=== PATIENT | male | born 1955 | race Caucasian/White ===

== ENCOUNTER 2016-11-01 13:43 | Observation (INO) | payer MEDICAID ==
[2016-11-01] MEDS ORDERED: ASPIRIN 81 MG TAB.CHEW PO ONE (14:00)
[2016-11-01] MEDS ORDERED: NITROGLYCERIN 0.4 MG/TAB BTL SL PRN (14:00)
[2016-11-01 14:12] LABS: Hematocrit 42.1 % (42.0-52.0); Mean Cell Volume 89.2 fl (78-100); Mean Corpuscular Hemoglobin 31.8 pg (27-31); Mean Corpuscular Hgb Conc 35.6 g/dl (32-36); Mean Platelet Volume 9.6 fl (6.0-9.5); Neutrophil % 57.1 % (42-75.0); Platelet Count 167 K/mm3 (150-450); Red Blood Count 4.72 M/mm3 (4.7-6.0); Red Cell Distribution Width 13.3 % (11.5-14.0); White Blood Count 5.3 K/mm3 (4.0-10.5)
[2016-11-01 14:24] LABS: Prothrombin Time (Patient) 10.9 Seconds (9.4-11.4)
[2016-11-01] MEDS ORDERED: ASPIRIN 81 MG TAB.CHEW ONE (14:28)
[2016-11-01 14:30] LABS: ALT 29 U/L (19-67); AST 24 U/L (0-48); Albumin * 4.1 gm/dl (3.4-5.0); Alkaline Phosphatase * 86 U/L (50-170); Anion Gap 13.2 mmol/L (6.8-13.8); Bilirubin, Total 0.7 mg/dL (0.0-1.1); Blood Urea Nitrogen 23 mg/dL (6-23); Ca. Corrected For Albumin 8.6 mg/dL (8.4-10.2); Carbon Dioxide 26.9 mmol/L (24-32.6); Chloride 104 mmol/L (97-106); Glucose * 109 mg/dL (70-110); INR 1.05 INR (0.90-1.10); Partial Thrombolplastin Time 28.7 Seconds (24-32); Potassium 4.1 mmol/L (3.4-4.6); Sodium 140 mmol/L (132-142); Total Protein 8.2 gm/dL (6.2-8.2)
[2016-11-01 14:31] LABS: Troponin I Less than 0.017 ng/ml (0.00-0.10)
--- NOTE | 2016-11-01 15:17 | ERNOTE ---
Chest Pain/Cardiac HPI Date of Service: 11/01/16 Chief Complaint: Chest Pain Time Seen by Provider: 11/01/16 14:06 Source: patient, RN notes reviewed Exam Limitations: no limitations Immunizations: IMMUNIZATION HX Immunizations Up to Date Yes History of Influenza Vaccine Yes Hx Pneumococcal Vaccination No Allergies/Adverse Reactions: Allergies Penicillins Allergy (Severe, Verified 11/01/16 13:55) Anaphylaxis Home Medications: HOME MEDICATIONS Lisinopril [Prinivil] 10 mg PO DAILY #30 tablet 08/02/16 [Last Taken Unknown] risperiDONE [Risperdal] 2 mg PO BID 11/01/16 [Last Taken Unknown] Pain Score #1 Pain Score: 2 Narrative: 61 year old male presents to the ED with left sided chest pain that began this morning. He had chest pain yesterday that began during jainism. It resolved without intervention after about 90 minutes. His pain was initially severe today , but he pounded on his chest and the pain lessened. He also reports tingling in his left arm and profuse sweating off and on throughout the day today. Timing: constant Severity/Quality: mild, pressure Location: left chest Chest Pain Radiation: no radiation Activities at Onset: rest Nitro Today/Relief: no nitro taken today Aspirin Treatment Today: no aspirin today Associated Symptoms: Present: cough, diaphoresis. Absent: dizziness, syncope, shortness of breath, nausea, vomiting, abdominal pain, swelling/lump in chest Prior Chest Pain/Cardiac Workup: Reports: no prior cardiac workup. Denies: heart attack Prior Treatment: Denies: recently seen Review of Systems - Review of Systems Constitutional: Present: fatigue. Absent: recent illness, fever, chills EYE: Present: no symptoms reported ENT: Present: no symptoms reported Respiratory: Absent: shortness of breath, cough Cardiology: Present: chest pain. Absent: palpitations, syncope, edema Gastrointestinal/Abdominal: Absent: nausea, vomiting, abdominal pain Genitourinary: Present: no symptoms reported Musculoskeletal: Absent: back pain, muscle pain, neck pain Skin: Absent: rash, lesions, lumps Neurological: Absent: headache, dizziness/light-headedness Endocrine: Present: no symptoms reported Hematologic/Lymphatic: Present: no symptoms reported Psych: Absent: anxiety, depressed - Patient's Past Medical History Patient History - Medical: Headache Patient History - Cardiac/Respiratory: Hypertension Patient History - Cancer: No Hx of Cancer Patient History - Surgical Procedures: Hernia Repair Patient History - Other: None - Social History Living Situations: home Abuse History: No History of abuse Psych History: No pertinent hx Smoking Status: Never smoker Alcohol Use: occasionally Drug Use: none - Immunizations Immunizations Up to Date: Yes Hx Pneumococcal Vaccination: No History of Influenza Vaccine: Yes Physical Exam - Physical Exam General Appearance: Present: wd/wn, alert, no apparent distress, anxious Head Exam: Present: normal inspection Eye Exam: Normal inspection: bilateral Ears, Nose, Throat: Present: normal ENT inspection Neck: Present: normal inspection, nontender, supple Respiratory: Present: no respiratory distress, normal breath sounds, no accessory muscle use, chest nontender, lungs clear Cardiovascular/Chest: Present: regular rate, rhythm, normal peripheral pulses, systolic murmur Extremity Exam: Present: normal inspection, normal range of motion, no edema Neurological Exam: Present: alert, oriented, normal mood/affect, no motor/ sensory deficits Skin Exam: Present: normal color, warm/dry ED Progress - Results and Orders Patient's Lab Results:: I have reviewed the patient's lab results. - Vital Signs Patient's Vital Signs:: I have reviewed the patient's vital signs. Vital Signs: Vital Signs 11/01/16 11/01/16 11/01/16 13:46 14:29 14:55 Temperature 36.1 C L Pulse Rate 85 96 79 Respiratory 12 14 11 L Rate Blood Pressure 137/78 129/80 104/73 O2 Sat by Pulse 95 97 97 Oximetry - EKG EKG: NSR EKG read: Reviewed by me - X-Ray X-Ray #1 X-Ray: chest Interpretation: Reviewed by me X-ray Comments: No acute cardiopulmonary process noted - Progress/Reassessment Chief Complaint: Chest Pain Progress:: Improved Plan - Plan Plan: Chest pain relieved with 1 nitro, Lab and EKG unremarkable, Dr. Pisano contacted , to admit patient to observation to r/o [place] Departure - Departure Clinical Impression: Chest pain, rule out acute myocardial infarction Disposition: [facility] Condition: Stable
[2016-11-01] MEDS ORDERED: risperiDONE 1 MG TABLET PO SCH (21:30)
--- NOTE | 2016-11-01 21:35 | HP ---
Chief Complaint - Chief Complaint Date of Service: 11/01/16 Time of Service: 21:10 Chief Complaint: chest pain History of Present Illness: 61 years old male adm to the hospital with report of chest pain. pt of Dr. Pisano [facility] significant for hypertension, bipolar and schizo. pt stated while at mosque yesterday he felt a sharp punch on his chest. Associated s/s shortness of breath, diaphoresis, lethargic and tingling to left arm. He denies dizziness , headaches, palpitation, nausea or vomiting. He went home stayed in bed and the pain lasted approximately 90 minutes and self resolved. This morning while on his computer he had similar episode with same associated s/s, this time the pain was more intense. pt stated he was concerned and came to the ER. In ER he had aspirin and nitro tab and pain resolved. EKG unremarkable, troponins x2 negative.Plan of care discussed with pt he verbalized understanding and agrees. - Patient's Past Medical History Patient History - Medical: Bipolar, Headache Patient History - Cardiac/Respiratory: Hypertension Patient History - Cancer: No Hx of Cancer Patient History - Surgical Procedures: Other - left shoulder surgery, Hernia Repair Patient History - Other: None - Family History Mother Family History - Medical: , Diabetes Type 2, Depression Family History - Cardiac/Respiratory: History Unknown Family History - Cancer: History Unknown Father Family History - Medical: , Rheumatoid Arthritis Family History - Cardiac/Respiratory: CHF, Myocardial Infarction Family History - Cancer: No pertinent family hx - Social History Living Situations: other Abuse History: No History of abuse Psych History: Hx of Schizophrenia Smoking Status: Former smoker Have you smoked in the past 12 months: No Do you dip or chew tobacco: No Patient requests Smoking Cessation Consult: No Initiate information on Smoking Cessation: No Alcohol Use: occasionally Drug Use: none - Immunizations Immunizations Up to Date: Yes Hx Pneumococcal Vaccination: No History of Influenza Vaccine: Yes Review Of Systems (GEN) - Review of Systems Generalized/Overall Review: Present: No Symptoms Reported EENTM: Present: No Symptoms Reported Respiratory: Present: No Symptoms Reported Cardiac: Present: No Symptoms Reported Abdominal: Present: No Symptoms Reported Genitourinary: Present: No Symptoms Reported Musculoskeletal: Present: No Symptoms Reported Neurological: Present: No Symptoms Reported Skin: Present: No Symptoms Reported Endocrine: Present: No Symptoms Reported Immunizations: IMMUNIZATION HX Immunizations Up to Date Yes History of Influenza Vaccine Yes Hx Pneumococcal Vaccination No Allergies/Adverse Reactions: Allergies Allergy/AdvReac Type Severity Reaction Status Date / Time Penicillins Allergy Severe Anaphylaxis Verified 11/01/16 15:44 Home Medications: HOME MEDICATIONS Lisinopril [Prinivil] 10 mg PO DAILY #30 tablet 08/02/16 [Last Taken Unknown] risperiDONE [Risperdal] 2 mg PO BID 11/01/16 [Last Taken Unknown] Exam - Exam Vital Signs: Vital Signs - Last Taken Temp 36.5 C 11/01/16 19:37 Pulse 75 11/01/16 19:37 Resp 20 11/01/16 19:37 BP 123/78 11/01/16 19:37 Pulse Ox 97 11/01/16 19:37 Constitutional: Present: Alert, Oriented x3, Cooperative, Well developed, No distress, Young ENT Exam: Present: hearing grossly normal Eye Exam: bilateral eye: normal inspection Neck: Present: full range of motion Back Exam: Present: normal inspection Breasts: Present: Exam deferred Respiratory: Present: chest non-tender, lungs clear, normal breath sounds, no respiratory distress Cardiovascular/Chest: Present: normal peripheral pulses, regular rate, rhythm, no edema Peripheral Pulses: dorsalis-pedis (R): 3+, dorsalis-pedis (L): 3+ Abdomen: Present: Normal bowel sounds, soft, nontender, nondistended /Rectal: Present: Exam deferred Extremity: Present: normal range of motion, non-tender, normal inspection, no pedal edema Skin Exam: Present: normal color, warm/dry, no cyanosis Lymphatic: Present: no adenopathy Neurologic: Present: oriented x 3 Appearance: Present: appropriate appearance, appropriate insight Eye contact: Present: cooperative, good eye contact Thoughts: Present: normal thought pattern Diagnostic Studies: Laboratory Results WBC 5.3 K/mm3 (4.0-10.5) 11/01/16 14:05 RBC 4.72 M/mm3 (4.7-6.0) 11/01/16 14:05 Hgb 15.0 gm/dL (13.5-18.0) 11/01/16 14:05 Hct 42.1 % (42.0-52.0) 11/01/16 14:05 MCV 89.2 fl (78-100) 11/01/16 14:05 MCH 31.8 pg (27-31) H 11/01/16 14:05 MCHC 35.6 g/dl (32-36) 11/01/16 14:05 RDW 13.3 % (11.5-14.0) 11/01/16 14:05 Plt Count 167 K/mm3 (150-450) 11/01/16 14:05 MPV 9.6 fl (6.0-9.5) H 11/01/16 14:05 Immature Gran % (Auto) 0.40 % (0.001-0.429) 11/01/16 14:05 Immature Gran # (Auto) 0.02 K/mm3 (0.000-0.0310) 11/01/16 14:05 Neutrophils % 57.1 % (42-75.0) 11/01/16 14:05 Lymphocytes % 25.9 % (20-51) 11/01/16 14:05 Monocytes % 11.4 % (0.0-9) H 11/01/16 14:05 Eosinophils % 4.2 % (0.0-3.0) H 11/01/16 14:05 Basophils % 1.0 % (0.0-1.0) 11/01/16 14:05 Nucleated RBC % 0.0 k/mm3 (0-1) 11/01/16 14:05 Neutrophils # 3.0 K/mm3 (1.3-6.0) 11/01/16 14:05 Lymphocytes # 1.4 k/mm3 (1.5-3.5) L 11/01/16 14:05 Monocytes # 0.6 k/mm3 (0.0-1.0) 11/01/16 14:05 Eosinophils # 0.2 k/mm3 (0.0-0.7) 11/01/16 14:05 Absolute Basophils 0.1 k/mm3 (0.0-0.1) 11/01/16 14:05 PT 10.9 Seconds (9.4-11.4) 11/01/16 14:05 INR (Anticoag Therapy) 1.05 INR (0.90-1.10) 11/01/16 14:05 PTT (Grainger) 28.7 Seconds (24-32) 11/01/16 14:05 Sodium 140 mmol/L (132-142) 11/01/16 14:05 Plasma Sodium 140 mmol/L (130-142) 11/01/16 14:05 Potassium 4.1 mmol/L (3.4-4.6) 11/01/16 14:05 Chloride 104 mmol/L (97-106) 11/01/16 14:05 Carbon Dioxide 26.9 mmol/L (24-32.6) 11/01/16 14:05 Anion Gap 13.2 mmol/L (6.8-13.8) 11/01/16 14:05 BUN 23 mg/dL (6-23) D 11/01/16 14:05 Creatinine 1.00 mg/dL (0.4-1.4) 11/01/16 14:05 Est GFR (Non-Af Amer) 81 mL/min (60-130) 11/01/16 14:05 BUN/Creatinine Ratio 23.0 (9.0-21.6) H 11/01/16 14:05 Random Glucose 109 mg/dL (70-110) 11/01/16 14:05 Calcium 9.0 mg/dL (7.9-10.9) 11/01/16 14:05 Calcium Adj for Albumin 8.6 mg/dL (8.4-10.2) 11/01/16 14:05 Total Bilirubin 0.7 mg/dL (0.0-1.1) 11/01/16 14:05 AST 24 U/L (0-48) 11/01/16 14:05 ALT 29 U/L (19-67) 11/01/16 14:05 Alkaline Phosphatase 86 U/L (50-170) 11/01/16 14:05 Troponin I Less than 0.017 ng/ml (0.00-0.10) 11/01/16 20:00 Total Protein 8.2 gm/dL (6.2-8.2) 11/01/16 14:05 Albumin 4.1 gm/dl (3.4-5.0) 11/01/16 14:05 CXR: No acute cardiopulmonary process. Assessment/Plan - Narrative Narrative: Chest pain EKG unremarkable, continue to monitor on telemetry Trop x2 negative Aspirin and nitro tab given in ER and pain totally resolved. Lipid panel and TSH pending Low flow oxygen. Low sodium diet will consider stress test in AM or out pt Hypertension- stable continue with home dose of medications Monitor vital signs Bipolar/ Schizo- stable Pt stated he takes only Risperidone 1mg BID Resume home medication Code status: Full VTEppx: SCD and ambulate GI ppx: pepcid Time 30 minutes - Assessment/Plan (1) Chest pain, rule out acute myocardial infarction Problem: Acute (2) HTN (hypertension) Problem: Chronic Qualifiers: Hypertension type: essential hypertension Qualified Code(s): I10 - Essential (primary) hypertension
[2016-11-01] MEDS: FAMOTIDINE 20 MG TABLET PO SCH (21:54)
[2016-11-02 05:47] LABS: Cholesterol 134 mg/dL (0-200); HDL Cholesterol 33 mg/dL (40-60); LDL Cholesterol 76 mg/dL (70-130); TSH * 5.881 uIU/mL (0.358-3.74); Triglycerides 125 mg/dL (30-200); VLDL Cholesterol 25 mg/dL (5-40)
[2016-11-02 05:53] LABS: Troponin I Less than 0.017 ng/ml (0.00-0.10)
[2016-11-02 06:55] VITALS: BP 105/72
[2016-11-02] MEDS: FAMOTIDINE 20 MG TABLET PO SCH (08:49)
[2016-11-02] MEDS ORDERED: risperiDONE 1 MG TABLET PO SCH (09:00)
[2016-11-02] MEDS ORDERED: LISINOPRIL 10 MG TABLET PO SCH (09:00)
--- NOTE | 2016-11-02 09:51 | DS ---
<Tere Grant - Last Filed: 11/02/16 09:42> (1) Chest pain of unknown etiology Problem: Acute (2) HTN (hypertension) Problem: Chronic QualifierTitle: Hypertension type: essential hypertension Qualified Code( s): I10 - Essential (primary) hypertension Procedures Performed: none Discharge Disposition: Home self care Disposition: Home self-care Condition: Stable Discharge Activity: Activity as tolerated Discharge Diet: Low salt, Low fat/chol Referrals: Serena Pisano DO [Primary Care Provider] - Problem Oriented Discharge Instructions to Patient/Family: Exercise Stress Electrocardiogram, [id number], Nonspecific Chest Pain, [id number], Exercise Stress Electrocardiogram, Care After, [id number], Chest Pain Observation Additional Patient Instructions (free text): be sure to drink enough water, especially when the temperature is warm. activity as tolerated. no changes in your home medications. Outpatient appointment for Echocardiogram is on 11-09-16 @ 9:00am . Outpatient appointment for Nuclear Treadmill Stress Test will be on 11-10-16 @ 7:00am. please wear comfortable cloths and shoes. Follow up with Dr. Pisano in 2-3 weeks, after the echocardiogram and stress test outpatient.,this appointment will be 12-06-16 @ 3:00pm. Complete Home Medications List: Complete Home Medication List: Lisinopril [Prinivil] 10 mg PO DAILY #30 tablet 08/02/16 risperiDONE [Risperdal] 2 mg PO BID 11/01/16 Amb Orders for Discharge: NUC Treadmill Stress Complete Time Frame: 3 Days, Location: Determined By Patient US Echocardiogram Complete * Time Frame: 3 Days, Location: Determined By Patient <Serena Pisano - Last Filed: 11/09/16 15:10> (1) Chest pain of unknown etiology Problem: Acute (2) Chest pain, rule out acute myocardial infarction Problem: Acute (3) HTN (hypertension) Problem: Chronic Qualifiers: Hypertension type: essential hypertension Qualified Code(s): I10 - Essential (primary) hypertension Description of Stay: The patient was admitted to the hospital for chest pain of unknown etiology. During his admission, he was monitored on telemetry and his cardiac enzymes were trended, both of which were unremarkable. The patient will be scheduled for an outpatient treadmill stress test as well as a transthoracic 2-D echocardiogram. Patient will follow-up with me in clinic following completion of these tests to discuss the results. Procedures Performed: none Results and Findings: Laboratory Tests 11/01/16 11/01/16 11/01/16 14:05 14:05 14:05 WBC 5.3 Hgb 15.0 Hct 42.1 MCV 89.2 Plt Count 167 PT 10.9 INR (Anticoag Therapy) 1.05 PTT (Nico) 28.7 Sodium 140 Plasma Sodium 140 Potassium 4.1 Chloride 104 Carbon Dioxide 26.9 Anion Gap 13.2 BUN 23 D Creatinine 1.00 Est GFR (Non-Af Amer) 81 BUN/Creatinine Ratio 23.0 H Random Glucose 109 Calcium 9.0 Calcium Adj for Albumin 8.6 Total Bilirubin 0.7 AST 24 ALT 29 Alkaline Phosphatase 86 Troponin I Less than 0.017 Total Protein 8.2 Albumin 4.1 Triglycerides Cholesterol LDL Cholesterol VLDL Cholesterol HDL Cholesterol Cholesterol/HDL Ratio TSH Free T4 Free T3 11/01/16 11/02/16 11/02/16 20:00 05:10 05:10 WBC Hgb Hct MCV Plt Count PT INR (Anticoag Therapy) PTT (Nico) Sodium Plasma Sodium Potassium Chloride Carbon Dioxide Anion Gap BUN Creatinine Est GFR (Non-Af Amer) BUN/Creatinine Ratio Random Glucose Calcium Calcium Adj for Albumin Total Bilirubin AST ALT Alkaline Phosphatase Troponin I Less than 0.017 Less than 0.017 Total Protein Albumin Triglycerides 125 Cholesterol 134 LDL Cholesterol 76 VLDL Cholesterol 25 HDL Cholesterol 33 L Cholesterol/HDL Ratio 4.0 TSH 5.881 H Free T4 0.96 Free T3 11/02/16 05:10 WBC Hgb Hct MCV Plt Count PT INR (Anticoag Therapy) PTT (Nico) Sodium Plasma Sodium Potassium Chloride Carbon Dioxide Anion Gap BUN Creatinine Est GFR (Non-Af Amer) BUN/Creatinine Ratio Random Glucose Calcium Calcium Adj for Albumin Total Bilirubin AST ALT Alkaline Phosphatase Troponin I Total Protein Albumin Triglycerides Cholesterol LDL Cholesterol VLDL Cholesterol HDL Cholesterol Cholesterol/HDL Ratio TSH Free T4 Free T3 3.1 Discharge Disposition: Home self care Discharge Activity: Activity as tolerated Discharge Diet: Low salt, Low fat/chol
== END 2016-11-02 11:30 | disposition home or self-care (01) ==
LOC: ER 13:43 → MS 15:02
PROVIDERS: ADMIT Internal Medicine; ATTEND Internal Medicine
DX: R07.9 Chest pain, unspecified (principal); I10 Essential (primary) hypertension; F31.9 Bipolar disorder, unspecified; R51 Headache
CPT/HCPCS: 36415; 71020; 80053; 80061; 84439; 84443; 84481; 84484; 85025; 85610; 85730; 93005; 99285; G0378

== ENCOUNTER 2017-01-14 16:54 | Emergency (ER) | payer MEDICAID ==
[2017-01-14] MEDS ORDERED: ASPIRIN 81 MG TAB.CHEW PO ONE ×2 (17:13→17:17)
[2017-01-14] MEDS ORDERED: ASPIRIN 81 MG TAB.CHEW ONE (17:17)
--- NOTE | 2017-01-14 17:17 | ERNOTE ---
Chest Pain/Cardiac HPI Chief Complaint: Palpitations Time Seen by Provider: 01/14/17 17:06 Source: patient Exam Limitations: no limitations Immunizations: IMMUNIZATION HX Immunizations Up to Date Yes History of Influenza Vaccine Yes Hx Pneumococcal Vaccination No Allergies/Adverse Reactions: Allergies Penicillins Allergy (Severe, Verified 11/01/16 15:44) Anaphylaxis Home Medications: HOME MEDICATIONS Lisinopril [Prinivil] 10 mg PO DAILY #30 tablet 08/02/16 [Last Taken Unknown] risperiDONE [Risperdal] 2 mg PO BID 11/01/16 [Last Taken Unknown] Metoprolol Succinate [Toprol Xl] 25 mg PO DAILY #30 tab 01/14/17 [Last Taken Unknown] Naproxen [Naprosyn] 500 mg PO BID #60 tablet 01/14/17 [Last Taken Unknown] Narrative: Patient presents with palpitations that started yesterday morning as well as left anterior chest pain that is reproducible on palpation this started earlier this afternoon. Timing: constant Severity/Quality: mild Location: left chest Chest Pain Radiation: no radiation Activities at Onset: none Modifying Factors - Improves: Present: nothing, other - although he thinks that massage to the left anterior chest does help some Modifying Factors - Worsens: Present: nothing Nitro Today/Relief: no nitro taken today Aspirin Treatment Today: 81 mg x 4, provided by ED Associated Symptoms: Present: palpitations Prior Chest Pain/Cardiac Workup: Reports: no prior cardiac workup Prior Treatment: Reports: recently seen Review of Systems - Review of Systems Constitutional: Present: See HPI EYE: Present: no symptoms reported ENT: Present: no symptoms reported Respiratory: Present: no symptoms reported Cardiology: Present: See HPI Gastrointestinal/Abdominal: Present: no symptoms reported Genitourinary: Present: no symptoms reported Musculoskeletal: Present: no symptoms reported Skin: Present: no symptoms reported Neurological: Present: no symptoms reported Endocrine: Present: no symptoms reported Hematologic/Lymphatic: Present: no symptoms reported Psych: Present: no symptoms reported - Patient's Past Medical History Patient History - Medical: Bipolar, Headache, Other - PTSD Patient History - Cardiac/Respiratory: Hypertension Patient History - Cancer: No Hx of Cancer Patient History - Surgical Procedures: Other, Hernia Repair Patient History - Other: None - Family History Mother Family History - Medical: , Diabetes Type 2, Depression Family History - Cardiac/Respiratory: History Unknown Family History - Cancer: History Unknown Father Family History - Medical: , Rheumatoid Arthritis Family History - Cardiac/Respiratory: CHF, Myocardial Infarction Family History - Cancer: No pertinent family hx - Social History Living Situations: home Abuse History: No History of abuse Psych History: Hx of Schizophrenia - Immunizations Immunizations Up to Date: Yes Hx Pneumococcal Vaccination: No History of Influenza Vaccine: Yes Physical Exam - Physical Exam General Appearance: Present: wd/wn, alert, mild distress Head Exam: Present: normal inspection, no evidence of injury Eye Exam: Normal inspection: bilateral, PERRL: bilateral Ears, Nose, Throat: Present: normal ENT inspection, H, normal pharynx Neck: Present: normal inspection, nontender Respiratory: Present: no respiratory distress, normal breath sounds, no accessory muscle use, lungs clear, chest tenderness - his left anterior chest pain is reproducible on palpation Cardiovascular/Chest: Present: regular rate, rhythm, no murmur, normal peripheral pulses Gastrointestinal/Abdominal: Present: normal bowel sounds, nontender, nondistended, soft, no organomegaly Rectal Exam: Present: deferred Back Exam: Present: normal inspection, normal range of motion Extremity Exam: Present: normal inspection, non-tender, no edema, normal range of motion Neurological Exam: Present: alert, oriented, normal mood/affect Skin Exam: Present: normal color, warm/dry Lymphatic Exam: Present: no adenopathy ED Progress - Results and Orders Patient's Lab Results:: I have reviewed the patient's lab results. - Vital Signs Patient's Vital Signs:: I have reviewed the patient's vital signs. Vital Signs: Vital Signs 01/14/17 01/14/17 17:05 17:07 Temperature 36.4 C L Pulse Rate 86 87 Respiratory 13 10 L Rate Blood Pressure 145/98 145/98 O2 Sat by Pulse 96 97 Oximetry - EKG EKG: NSR EKG read: Reviewed by me - X-Ray X-Ray #1 X-Ray: chest Interpretation: Reviewed by me - Progress/Reassessment Chief Complaint: Palpitations Plan - Plan Plan: Patient appears to be having PVCs that were noted while he was here in the emergency department as the source of his palpitation-like discomfort that he was having earlier today. His chest pain is all reproducible on palpation and these 2 things will be easily treated I think with a low-dose beta erma as well as a nonsteroidal anti-inflammatory. He agrees to follow-up with his family physician next week Departure Clinical Impression: Palpitations, Chest wall pain - Departure Disposition: Home self-care Condition: Good Instructions: Palpitations, [id number], Chest Wall Pain, [id number] Referrals: Serena Pisano DO [Primary Care Provider] - Prescriptions: Metoprolol Succinate [Toprol Xl] 25 mg PO DAILY #30 tab Naproxen [Naprosyn] 500 mg PO BID #60 tablet
[2017-01-14 17:28] LABS: Hematocrit 43.9 % (42.0-52.0); Hemoglobin 15.6 gm/dL (13.5-18.0); Mean Cell Volume 88.2 fl (78-100); Mean Corpuscular Hemoglobin 31.3 pg (27-31); Mean Corpuscular Hgb Conc 35.5 g/dl (32-36); Neutrophil # 5.1 K/mm3 (1.3-6.0); Neutrophil % 64.1 % (42-75.0); Platelet Count 193 K/mm3 (150-450); Red Blood Count 4.98 M/mm3 (4.7-6.0); White Blood Count 7.9 K/mm3 (4.0-10.5)
[2017-01-14 17:43] LABS: ALT 19 U/L (19-67); AST 18 U/L (0-48); Albumin * 4.3 gm/dl (3.4-5.0); Alkaline Phosphatase * 108 U/L (50-170); Anion Gap 13.3 mmol/L (6.8-13.8); BUN/Creatinine Ratio 18.8 (9.0-21.6); Bilirubin, Total 0.6 mg/dL (0.0-1.1); Blood Urea Nitrogen 21 mg/dL (6-23); Ca. Corrected For Albumin 8.7 mg/dL (8.4-10.2); Calcium * 9.3 mg/dL (7.9-10.9); Carbon Dioxide 28.8 mmol/L (24-32.6); Chloride 102 mmol/L (97-106); Glucose * 123 mg/dL (70-110); Lipase 265 U/L (73-393); Magnesium 2.1 mg/dL (1.2-2.8); Potassium 4.1 mmol/L (3.4-4.6); Sodium 140 mmol/L (132-142); Total Protein 8.2 gm/dL (6.2-8.2); Troponin I Less than 0.017 ng/ml (0.00-0.10)
[2017-01-14 18:13] VITALS: BP 129/88
== END 2017-01-14 18:01 | disposition home or self-care (01) ==
LOC: ER 16:54
DX: R07.89 Other chest pain (principal); R00.2 Palpitations